=== PATIENT | female | born 1990 | race Caucasian/White ===

== ENCOUNTER → 2016-12-25 | Outpatient (CLI) | payer BC ==
[2016-12-25 11:04] LABS: Basophils # (auto) 0 uL; Basophils % (auto) 0.2 % (0.0-2.0); Eosinophils # (auto) 0.2 uL; Eosinophils % (auto) 1.5 % (0.0-7.0); Hematocrit 36.3 % (36.0-46.0); Hemoglobin 12.7 g/dL (12.2-16.2); Lymphocytes # (auto) 1.6 uL; Lymphocytes % (auto) 13.4 % (10.0-50.0); Mean Corpuscular Hemoglobin 32.4 pg (28.0-32.0); Mean Corpuscular Volume 92.4 fL (80.0-100.0); Mean Platelet Volume 8.2 fL (7.4-10.4); Monocytes # (auto) 0.6 uL; Monocytes % (auto) 4.9 % (0.0-12.0); Neutrophils # (auto) 9.3 uL; Platelet Count (auto) 216 10^3/uL (140-450); Red Cell Distribution Width 12.6 % (11.6-16.0); White Blood Cell 11.6 10^3/uL (4.4-10.8)
== END | disposition home or self-care (01) ==
LOC: LAB 10:36
PROVIDERS: ATTEND Specialist
DX: Z36 Encounter for antenatal screening of mother (principal); Z11.3 Encounter for screening for infections with a predominantly sexual mode of transmission; Z34.80 Encounter for supervision of other normal pregnancy, unspecified trimester
CPT/HCPCS: 36415; 81220; 83036; 85025; 86592; 86703; 86762; 86850; 86900; 86901; 87086; 87340

== ENCOUNTER → 2017-01-29 | Outpatient (CLI) | payer BC | END | disposition home or self-care (01) | LOC: XYW 08:14 | PROVIDERS: ATTEND Specialist | DX: Z34.80 Encounter for supervision of other normal pregnancy, unspecified trimester (principal); I44.0 Atrioventricular block, first degree | CPT/HCPCS: 93306 ==

== ENCOUNTER → 2017-04-22 | Outpatient (CLI) | payer BC ==
[2017-04-22 09:23] LABS: Basophils # (auto) 0 uL; Basophils % (auto) 0.3 % (0.0-2.0); CONDITION Y; Eosinophils # (auto) 0.1 uL; Eosinophils % (auto) 0.7 % (0.0-7.0); Hematocrit 35.5 % (36.0-46.0); Hemoglobin 12.3 g/dL (12.2-16.2); Lymphocytes # (auto) 1.9 uL; Lymphocytes % (auto) 15.1 % (10.0-50.0); Mean Corpuscular Hemoglobin 32.9 pg (28.0-32.0); Mean Corpuscular Hgb Conc. 34.6 g/dL (32.0-36.0); Mean Corpuscular Volume 95.1 fL (80.0-100.0); Mean Platelet Volume 8.1 fL (7.4-10.4); Monocytes # (auto) 1.1 uL; Monocytes % (auto) 9.3 % (0.0-12.0); Neutrophils # (auto) 9.2 uL; Neutrophils % (auto) 74.6 % (37.0-80.0); Platelet Count (auto) 189 10^3/uL (140-450); Red Cell Distribution Width 14.1 % (11.6-16.0); White Blood Cell 12.3 10^3/uL (4.4-10.8)
== END | disposition home or self-care (01) ==
LOC: LAB 09:07
PROVIDERS: ATTEND Specialist
DX: Z34.80 Encounter for supervision of other normal pregnancy, unspecified trimester (principal)
CPT/HCPCS: 36415; 82951; 85025; 86850; 86900; 86901

== ENCOUNTER 2017-05-04 14:50 | Observation (INO) | payer BC ==
[~2017-05-04] VITALS: Ht 162.6 cm; Wt 84.4 kg
[2017-05-04] MEDS ORDERED: PREN-153 OR (15:49)
[2017-05-04] MEDS ORDERED: BETAMETHASONE ACET (6MG/ML) 5ML VIAL ONE (16:10)
[2017-05-04] MEDS ORDERED: BETAMETHASONE ACET (6MG/ML) 5ML VIAL IM ONE (16:15)
== END 2017-05-04 16:36 | disposition home or self-care (01) | DRG 778 ==
LOC: LDRP 14:50
PROVIDERS: ADMIT Specialist; ATTEND Specialist
DX: O60.03 Preterm labor without delivery, third trimester (principal); Z3A.28 28 weeks gestation of pregnancy
CPT/HCPCS: 59025; 81002; G0378; J0702

== ENCOUNTER 2017-05-05 16:38 | Observation (INO) | payer BC ==
[~2017-05-05 16:38] MED LIST: PREN-153 OR
[2017-05-05] MEDS ORDERED: BETAMETHASONE ACET (6MG/ML) 5ML VIAL IM ONE (16:45)
== END 2017-05-05 17:25 | disposition home or self-care (01) | DRG 781 ==
LOC: LDRP 16:38
PROVIDERS: ADMIT Specialist; ATTEND Specialist
DX: O26.893 Other specified pregnancy related conditions, third trimester (principal); Z3A.28 28 weeks gestation of pregnancy
CPT/HCPCS: 59025; 81002; 96372; G0378; J0702

== ENCOUNTER 2017-05-21 09:55 | Observation (INO) | payer BC | END 2017-05-21 13:00 | disposition home or self-care (01) | DRG 781 | LOC: LDRP 09:55 | PROVIDERS: ADMIT Specialist; ATTEND Specialist | DX: O26.893 Other specified pregnancy related conditions, third trimester (principal); O62.9 Abnormality of forces of labor, unspecified; R10.9 Unspecified abdominal pain; Z3A.30 30 weeks gestation of pregnancy | CPT/HCPCS: 59025; 76818; 81002; 82948; 82962; G0378 ==

== ENCOUNTER 2017-05-23 10:08 | Observation (INO) | payer BC | END 2017-05-23 12:35 | disposition home or self-care (01) | DRG 781 | LOC: LDRP 10:08 | PROVIDERS: ADMIT Obstetrics & Gynecology; ATTEND Obstetrics & Gynecology | DX: O24.419 Gestational diabetes mellitus in pregnancy, unspecified control (principal); O26.893 Other specified pregnancy related conditions, third trimester; R10.2 Pelvic and perineal pain; R10.9 Unspecified abdominal pain; Z3A.30 30 weeks gestation of pregnancy | CPT/HCPCS: 59025; 76818; 81002; G0378 ==

== ENCOUNTER 2017-05-27 09:55 | Observation (INO) | payer BC ==
[2017-06-06] MEDS ORDERED: NIF10C GT (13:22)
== END 2017-05-27 13:45 | disposition home or self-care (01) | DRG 781 ==
LOC: LDRP 09:55
PROVIDERS: ADMIT Specialist; ATTEND Specialist
DX: O24.419 Gestational diabetes mellitus in pregnancy, unspecified control (principal); Z3A.00 Weeks of gestation of pregnancy not specified
CPT/HCPCS: 59025; 76818; 81002; G0378

== ENCOUNTER 2017-06-03 23:42 | Observation (INO) | payer BC ==
[2017-06-04] MEDS ORDERED: NIFEdipine 10 MG CAP ONE (01:57)
[2017-06-04] MEDS ORDERED: NIFEdipine 10 MG CAP PO ONE (02:00)
[2017-06-06] MEDS ORDERED: NIF10C GT (13:22)
== END 2017-06-04 03:41 | disposition home or self-care (01) | DRG 782 ==
LOC: LDRP 23:42
PROVIDERS: ADMIT Obstetrics & Gynecology; ATTEND Obstetrics & Gynecology
DX: O62.9 Abnormality of forces of labor, unspecified (principal); Z3A.32 32 weeks gestation of pregnancy
CPT/HCPCS: 59025; 81002; G0378

== ENCOUNTER 2017-06-09 11:55 | Observation (INO) | payer BC ==
[~2017-06-09 11:55] MED LIST changes: +NIF10C GT
== END 2017-06-09 13:30 | disposition home or self-care (01) | DRG 781 ==
LOC: LDRP 11:55
PROVIDERS: ADMIT Obstetrics & Gynecology; ATTEND Obstetrics & Gynecology
DX: O24.419 Gestational diabetes mellitus in pregnancy, unspecified control (principal); O60.03 Preterm labor without delivery, third trimester; Z3A.33 33 weeks gestation of pregnancy
CPT/HCPCS: 59025; 76818; 81002; G0378

== ENCOUNTER 2017-06-12 12:10 | Observation (INO) | payer BC ==
[2017-06-12] MEDS ORDERED: NIF10C PO (12:57)
== END 2017-06-12 13:45 | disposition home or self-care (01) | DRG 781 ==
LOC: LDRP 12:10
PROVIDERS: ADMIT Obstetrics & Gynecology; ATTEND Obstetrics & Gynecology
DX: O24.419 Gestational diabetes mellitus in pregnancy, unspecified control (principal); O60.03 Preterm labor without delivery, third trimester; Z3A.34 34 weeks gestation of pregnancy
CPT/HCPCS: 59025; 76818; 81002; 82948; 82962; G0378

== ENCOUNTER 2017-06-19 09:53 | Observation (INO) | payer BC ==
[~2017-06-19 09:53] MED LIST changes: -NIF10C GT; +NIF10C PO
== END 2017-06-19 11:25 | disposition home or self-care (01) | DRG 781 ==
LOC: LDRP 09:53
PROVIDERS: ADMIT Obstetrics & Gynecology; ATTEND Obstetrics & Gynecology
DX: O24.419 Gestational diabetes mellitus in pregnancy, unspecified control (principal); O60.03 Preterm labor without delivery, third trimester; Z3A.35 35 weeks gestation of pregnancy
CPT/HCPCS: 59025; 76818; 81002; 82962; G0378

== ENCOUNTER 2017-06-23 16:00 | Observation (INO) | payer BC | END 2017-06-23 17:10 | disposition home or self-care (01) | DRG 781 | LOC: LDRP 16:00 | PROVIDERS: ADMIT Obstetrics & Gynecology; ATTEND Obstetrics & Gynecology | DX: O24.419 Gestational diabetes mellitus in pregnancy, unspecified control (principal); Z3A.35 35 weeks gestation of pregnancy | CPT/HCPCS: 59025; 76818; 81002; 82948; 82962; G0378 ==

== ENCOUNTER 2017-06-26 14:30 | Observation (INO) | payer BC | END 2017-06-26 16:35 | disposition home or self-care (01) | DRG 781 | LOC: LDRP 14:30 | PROVIDERS: ADMIT Specialist; ATTEND Specialist | DX: O24.419 Gestational diabetes mellitus in pregnancy, unspecified control (principal); Z3A.36 36 weeks gestation of pregnancy | CPT/HCPCS: 59025; 76818; 81002; 82962; G0378 ==

== ENCOUNTER 2017-06-30 12:00 | Observation (INO) | payer BC | END 2017-06-30 13:15 | disposition home or self-care (01) | DRG 781 | LOC: LDRP 12:00 | PROVIDERS: ADMIT Specialist; ATTEND Specialist | DX: O24.419 Gestational diabetes mellitus in pregnancy, unspecified control (principal); O60.03 Preterm labor without delivery, third trimester; Z3A.36 36 weeks gestation of pregnancy | CPT/HCPCS: 59025; 76818; 81002; 82948; 82962; G0378 ==

== ENCOUNTER 2017-07-03 09:30 | Observation (INO) | payer BC ==
[~2017-07-03] VITALS: Ht 30.5 cm; Wt 0.5 kg
[2017-07-03 09:56] LABS: Basophils # (auto) 0 uL; Basophils % (auto) 0.4 % (0.0-2.0); Eosinophils # (auto) 0.1 uL; Eosinophils % (auto) 0.7 % (0.0-7.0); Hematocrit 37.1 % (36.0-46.0); Hemoglobin 13.3 g/dL (12.2-16.2); Lymphocytes # (auto) 1.6 uL; Lymphocytes % (auto) 16.3 % (10.0-50.0); Mean Corpuscular Hemoglobin 33.8 pg (28.0-32.0); Mean Corpuscular Hgb Conc. 35.7 g/dL (32.0-36.0); Mean Corpuscular Volume 94.6 fL (80.0-100.0); Mean Platelet Volume 8.6 fL (6.9-10.8); Monocytes # (auto) 0.9 uL; Monocytes % (auto) 9.6 % (0.0-12.0); Neutrophils # (auto) 7.2 uL; Nucleated Red Blood Cells % 0.1 %; Platelet Count (auto) 145 10^3/uL (140-450); Red Cell Distribution Width 14.1 % (11.8-14.3); White Blood Cell 9.8 10^3/uL (4.4-10.8)
== END 2017-07-03 11:40 | disposition home or self-care (01) | DRG 781 ==
LOC: LAB 09:30 → LDRP 09:50
PROVIDERS: ADMIT Specialist; ATTEND Specialist
DX: O24.419 Gestational diabetes mellitus in pregnancy, unspecified control (principal); Z3A.37 37 weeks gestation of pregnancy
CPT/HCPCS: 36415; 59025; 76818; 81002; 82962; 85025; 86592; 87081; G0378

== ENCOUNTER 2017-07-07 11:57 | Observation (INO) | payer BC | END 2017-07-07 13:25 | disposition home or self-care (01) | DRG 781 | LOC: LDRP 11:57 | PROVIDERS: ADMIT Specialist; ATTEND Specialist | DX: O24.419 Gestational diabetes mellitus in pregnancy, unspecified control (principal); Z3A.37 37 weeks gestation of pregnancy | CPT/HCPCS: 59025; 76818; 81002; 82962; G0378 ==

== ENCOUNTER 2017-07-10 10:22 | Observation (INO) | payer BC | END 2017-07-10 12:15 | disposition home or self-care (01) | DRG 781 | LOC: LDRP 10:22 | PROVIDERS: ADMIT Obstetrics & Gynecology; ATTEND Obstetrics & Gynecology | DX: O24.419 Gestational diabetes mellitus in pregnancy, unspecified control (principal); Z3A.38 38 weeks gestation of pregnancy | CPT/HCPCS: 59025; 76818; 81002; G0378 ==

== ENCOUNTER 2017-07-14 10:30 | Observation (INO) | payer BC | END 2017-07-14 12:05 | disposition home or self-care (01) | DRG 781 | LOC: INTOOBSV 10:30 → LDRP 10:30 | PROVIDERS: ADMIT Obstetrics & Gynecology; ATTEND Obstetrics & Gynecology | DX: O24.419 Gestational diabetes mellitus in pregnancy, unspecified control (principal); Z3A.38 38 weeks gestation of pregnancy | CPT/HCPCS: 59025; 76818; 81002; G0378 ==

== ENCOUNTER 2017-07-17 10:55 | Observation (INO) | payer BC | END 2017-07-17 12:48 | disposition home or self-care (01) | DRG 781 | LOC: LDRP 10:55 | PROVIDERS: ADMIT Obstetrics & Gynecology; ATTEND Obstetrics & Gynecology | DX: O24.419 Gestational diabetes mellitus in pregnancy, unspecified control (principal); Z3A.39 39 weeks gestation of pregnancy | CPT/HCPCS: 59025; 76818; 81002; 82962; G0378 ==

== ENCOUNTER 2017-07-21 12:00 | Observation (INO) | payer BC | END 2017-07-21 13:40 | disposition home or self-care (01) | DRG 781 | LOC: LDRP 12:00 | PROVIDERS: ADMIT Specialist; ATTEND Specialist | DX: O24.419 Gestational diabetes mellitus in pregnancy, unspecified control (principal); Z3A.39 39 weeks gestation of pregnancy | CPT/HCPCS: 59025; 76818; 81002; 82962; G0378 ==

== ENCOUNTER 2017-07-24 19:52 | Inpatient (IN) | payer BC ==
[~2017-07-24] VITALS: Ht 162.6 cm; Wt 78.0 kg
[2017-07-24] MEDS ORDERED: NALBUPHINE HCL 10 MG/1ml INJECTION IV PRN (20:00)
[2017-07-24] MEDS ORDERED: LIDOCAINE 2%HCL (LOCAL ANESTH.) INJ 20ML MDV IJ ONE (20:00)
[2017-07-24] MEDS ORDERED: PHISODERM TOP SOLN 240ML BTL TOP PRN (20:00)
[2017-07-24] MEDS ORDERED: PROMETHAZINE HCL 25 MG/ML 1ML IM ONE (20:00)
[2017-07-24] MEDS ORDERED: METHYLERGONOVINE MALEATE 0.2 MG/ML AMP IM PRN (20:00)
[2017-07-24] MEDS ORDERED: WITCH HAZEL-GLYCERIN PAD TOP PRN (20:00)
[2017-07-24] MEDS ORDERED: LACT. RINGERS/OXYTOCIN 20UNITS 1,000 ML IV SCH (20:00)
[2017-07-24 20:35] LABS: Basophils # (auto) 0 uL; Basophils % (auto) 0.2 % (0.0-2.0); Eosinophils # (auto) 0 uL; Lymphocytes # (auto) 1.9 uL; Monocytes # (auto) 0.8 uL
[2017-07-24 20:37] LABS: Eosinophils % (auto) 0.4 % (0.0-7.0); Hematocrit 36.9 % (36.0-46.0); Hemoglobin 13.1 g/dL (12.2-16.2); Lymphocytes % (auto) 19.3 % (10.0-50.0); Mean Corpuscular Hemoglobin 33.9 pg (28.0-32.0); Mean Corpuscular Hgb Conc. 35.6 g/dL (32.0-36.0); Mean Corpuscular Volume 95.4 fL (80.0-100.0); Mean Platelet Volume 8.8 fL (6.9-10.8); Neutrophils % (auto) 72.1 % (37.0-80.0); Nucleated Red Blood Cells % 0.1 %; Platelet Count (auto) 138 10^3/uL (140-450); Red Cell Distribution Width 14.2 % (11.8-14.3); White Blood Cell 9.7 10^3/uL (4.4-10.8)
[2017-07-24 20:47] LABS: Urine Bilirubin Negative (Negative); Urine Blood Negative /uL (Negative); Urine Color Yellow (Yellow); Urine Glucose Normal (Normal); Urine Ketone Negative (Negative); Urine Mucus FEW (None Seen); Urine Nitrite Negative (Negative); Urine RBC <1 /hpf (0 - 4); Urine Squamous Epithelial Cell FEW /hpf (<5); Urine Urobilinogen Normal (Negative); Urine pH 6.5 (5.0-8.0)
[2017-07-24 20:47] LABS: INR 0.91 (0.9-1.15); Partial Thromboplastin Time 29.1 sec (22.64-33.71); Prothrombin Time 9.9 sec (9.37-12.3)
[2017-07-24 20:59] LABS: Albumin 2.8 g/dL (3.4-5.0); BUN/Creatinine Ratio 18.2; Bilirubin, Total 0.2 mg/dL (0.2-1.0); Calcium 8.9 mg/dL (8.5-10.1); Total Protein 6.6 g/dL (6.4-8.2)
[2017-07-25] MEDS: D5W/LACTATED RINGERS 1,000 ML IV SCH ×2 (02:00→12:29)
[2017-07-25] MEDS: ACCU-CHEK COMFORT CURVE STRIP VI SCH ×3 (03:30→13:27)
[2017-07-25] MEDS ORDERED: LACTATED RINGER'S 1,000 ML IV SCH (08:31)
[2017-07-25] MEDS ORDERED: DERMOPLAST 60ML BOTTLE TOP PRN (08:45)
[2017-07-25] MEDS ORDERED: fentaNYL W ROPIVACAINE 150 ML EPI SCH ×2 (17:00→18:30)
[2017-07-25] MEDS ORDERED: NALOXONE HCL 0.4 MG/ML VIAL IV ONE ×2 (17:00→18:30)
[2017-07-25] MEDS ORDERED: LIDOCAINE HCL 2 %PF INJ 10ML AMP IJ ONE ×2 (17:00→17:23)
[2017-07-25] MEDS ORDERED: fentaNYL CITRATE 100 MCG/2 ML VL IV ONE (17:00)
[2017-07-25] MEDS ORDERED: ePHEDrine SULFATE 50 MG/ML AMP IV ONE ×2 (17:00→18:30)
[2017-07-25] MEDS ORDERED: LACTATED RINGER'S 1,000 ML IV ONE (17:15)
[2017-07-25] MEDS ORDERED: fentaNYL W ROPIVACAINE 150 ML EPI ONE (17:22)
[2017-07-25] MEDS ORDERED: fentaNYL CITRATE 100 MCG/2 ML VL ONE (17:23)
[2017-07-25] MEDS ORDERED: ePHEDrine SULFATE 50 MG/ML AMP ONE (17:24)
[2017-07-25] MEDS ORDERED: SODIUM CHLORIDE 0.9% 500 ML IV PRN (18:23)
[2017-07-26] MEDS ORDERED: ceFAZolin 1GM/50ML 50 ML IV ONE ×2 (07:49→08:00)
[2017-07-26 12:00] VITALS: BP 103/62
[2017-07-26] MEDS ORDERED: ceFAZolin 1GM/50ML 50 ML IV SCH (12:00)
[2017-07-26] MEDS: DOCUSATE CALCIUM 240 MG CAP PO SCH (15:53)
[2017-07-26] MEDS: IBUPROFEN 600 MG TAB PO PRN ×3 (15:54→23:44)
[2017-07-26 16:01] VITALS: BP 102/71
[2017-07-26 20:00] VITALS: BP 105/63
[2017-07-26] MEDS: CIPROFLOXACIN HCL 500 MG TAB PO SCH (22:49)
[2017-07-26 23:38] VITALS: BP 110/65
[2017-07-27] MEDS ORDERED: diphenhdrAMINE HCL 25 MG CAP PO PRN (00:14)
[2017-07-27 03:27] VITALS: BP 107/70
[2017-07-27] MEDS: IBUPROFEN 600 MG TAB PO PRN (05:02)
[2017-07-27 08:00] VITALS: BP 101/61
[2017-07-27] MEDS: DOCUSATE CALCIUM 240 MG CAP PO SCH (09:43)
[2017-07-27] MEDS: CIPROFLOXACIN HCL 500 MG TAB PO SCH (10:11)
[2017-07-27 12:18] VITALS: BP 111/73
== END 2017-07-27 12:18 | disposition home or self-care (01) | DRG 775 ==
LOC: LDRP 19:52
PROVIDERS: ADMIT Specialist; ATTEND Specialist
PROC: 30233S1 Transfusion of Nonautologous Globulin into Peripheral Vein, Percutaneous Approach (ICD-10-PCS; 2017-07-24)
PROC: 0HQ9XZZ Repair Perineum Skin, External Approach (ICD-10-PCS; principal; 2017-07-26)
PROC: 10D07Z6 Extraction of Products of Conception, Vacuum, Via Natural or Artificial Opening (ICD-10-PCS; 2017-07-26)
PROC: 3E0R3BZ Introduction of Anesthetic Agent into Spinal Canal, Percutaneous Approach (ICD-10-PCS; 2017-07-26)
PROC: 00HU33Z Insertion of Infusion Device into Spinal Canal, Percutaneous Approach (ICD-10-PCS; 2017-07-26)
PROC: 10907ZC Drainage of Amniotic Fluid, Therapeutic from Products of Conception, Via Natural or Artificial Opening (ICD-10-PCS; 2017-07-26)
DX: O48.0 Post-term pregnancy (principal); O24.420 Gestational diabetes mellitus in childbirth, diet controlled; O69.81X0 Labor and delivery complicated by cord around neck, without compression, not applicable or unspecified; O70.0 First degree perineal laceration during delivery; Z37.0 Single live birth; Z3A.40 40 weeks gestation of pregnancy
CPT/HCPCS: 36415; 51702; 59025; 59409; 62282; 80053; 80307; 81001; 82947; 82948; 82962; 85025; 85610; 85730; 86850; 86900; 86901; 90384; 94762; 96365; 96366; J0690; J2590; J3010

== ENCOUNTER → 2019-11-23 | Day surgery (SDC) | payer BC ==
[2019-11-20 15:20] LABS: Basophils # (auto) 0 uL; Basophils % (auto) 0.5 % (0.0-2.0); Eosinophils # (auto) 0.1 uL; Hematocrit 42.6 % (36.0-46.0); Hemoglobin 14.9 g/dL (12.2-16.2); Lymphocytes # (auto) 2.2 uL; Lymphocytes % (auto) 23.7 % (10.0-50.0); Mean Corpuscular Hemoglobin 32.7 pg (28.0-32.0); Mean Corpuscular Hgb Conc. 34.9 g/dL (32.0-36.0); Mean Corpuscular Volume 93.8 fL (80.0-100.0); Monocytes # (auto) 0.7 uL; Neutrophils # (auto) 6.2 uL; Neutrophils % (auto) 66.8 % (37.0-80.0); Platelet Count (auto) 220 10^3/uL (140-450); Red Blood Cells 4.55 10^6/uL (4.0-5.20); Red Cell Distribution Width 13.1 % (11.8-14.3); White Blood Cell 9.2 10^3/uL (4.4-10.8)
[2019-11-20 15:30] LABS: Urine Bacteria NONE SEEN /hpf (None Seen); Urine Blood Negative /uL (Negative); Urine Specific Gravity 1.008 (1.001-1.035); Urine WBC 1 /hpf (0 - 5)
[2019-11-20 15:40] LABS: INR 1.06 (0.9-1.15); Partial Thromboplastin Time 30.5 sec (23.64-32.05)
[2019-11-20 15:43] LABS: Albumin 4.4 g/dL (3.4-5.0); BUN/Creatinine Ratio 13.4; Calcium 9.3 mg/dL (8.5-10.1); Potassium 3.7 mmol/L (3.5-5.1)
[2019-11-20 15:46] LABS: Bilirubin, Total 0.4 mg/dL (0.2-1.0); Total Protein 8.1 g/dL (6.4-8.2)
[~2019-11-23] VITALS: Ht 162.6 cm; Wt 77.6 kg
[~2019-11-23] MED LIST changes: +BUPIVACAINE 0.25% INJ 50ML VIAL ONE; +DexAMETHasone SOD PHOS 10MG/1ML VIAL INJ ONE; +HYDROmorphone HCL 2 MG/ML VL IV PRN; +KETOROLAC TROMETH 60MG/2ML VIAL ONE; +LABETALOL HCL 5 MG/ML 4ML SYRINGE IV PRN; +LIDOCAINE 1% HCL (LOCAL ANESTH.) INJ 20ML MDV ONE; +MIDAZOLAM HCL 1MG/1ML-2 ML VIAL IV PRN; +MIDAZOLAM HCL 1MG/1ML-2 ML VIAL ONE; +MORPHINE SULFATE 4 MG/ML SYR/VIAL IV PRN; -NIF10C PO; +ONDANSETRON HCL 4 MG/2 ML VIAL IV PRN; -PREN-153 OR; +PROPOFOL 10 MG/ML 20 ML IV ONE; +ceFAZolin 1GM/50ML 100 ML IV ONE; +ePHEDrine SULFATE 50 MG/ML AMP IV PRN; +fentaNYL CITRATE 100 MCG/2 ML VL ONE
[2019-11-23 08:44] VITALS: BP 136/79
== END | disposition home or self-care (01) ==
LOC: SUR 06:09
PROVIDERS: ATTEND Orthopaedic Surgery Adult Reconstructive Orthopaedic Surgery
DX: M67.432 Ganglion, left wrist (principal); Z98.890 Other specified postprocedural states
CPT/HCPCS: 25111; 36415; 80053; 81001; 84702; 85025; 85610; 85730; 88305; J0690; J1100; J1885; J2250; J2704; J3010; J3490; J2001

== ENCOUNTER 2019-12-28 06:57 | Emergency (ER) | payer BC ==
[~2019-12-28] VITALS: Ht 162.6 cm; Wt 72.6 kg
[2019-12-28 07:52] VITALS: BP 128/86
== END 2019-12-28 08:13 | disposition home or self-care (01) ==
LOC: ER 06:57
DX: J06.9 Acute upper respiratory infection, unspecified (principal); H10.9 Unspecified conjunctivitis